=== PATIENT | female | born 1985 | race Two or more races ===

== ENCOUNTER 2018-03-31 18:12 | Emergency (ER) | payer OTHER ==
[~2018-03-31] VITALS: Ht 157.5 cm; Wt 47.6 kg
[2018-03-31 18:55] LABS: BILIRUBIN,URINE NEGATIVE (NEG); CLARITY,URINE CLEAR; COLOR,URINE YELLOW; NITRITE,URINE NEGATIVE (NEG); PH,URINE 5.5; PROTEIN,URINE NEGATIVE (NEG-TRACE); UROBILINOGEN,URINE 0.2 mg/dL (0.2 mg/dL)
[2018-03-31 19:11] LABS: BACTERIA,URINE FEW /HPF (0-FEW); RBC,URINE >40 /HPF (0-2)
[2018-03-31 19:12] LABS: SQUAMOUS EPITHELIAL CELL,UR FEW /LPF
[2018-03-31 19:15] LABS: BASO % 0 % (0-3); EOS # 0.1 x10^3/uL (0.0-0.7); EOS % 1 % (0-3); HEMATOCRIT 37.8 % (36.0-47.0); HEMOGLOBIN 12.7 g/dL (12.0-15.5); LYMPH # 1.9 x10^3/uL (1.0-4.8); LYMPH % 21 % (24-48); MEAN CORPUSCULAR HEMOGLOBIN 28 pg (25-35); MEAN CORPUSCULAR HGB CONC 34 g/dL (31-37); MEAN CORPUSCULAR VOLUME 84 fL (79-100); MONO # 0.5 x10^3/uL (0.0-1.1); MONO % 6 % (0-9); NEUT # 6.5 x10^3uL (1.8-7.7); NEUT % 72 % (31-73); PLATELET COUNT 238 x10^3/uL (140-400); RED BLOOD COUNT 4.48 x10^6/uL (3.50-5.40); RED CELL DISTRIBUTION WIDTH 15.4 % (11.5-14.5)
--- NOTE | 2018-03-31 19:52 | PHYS DOC ---
Past Medical History Past Medical History: No Pertinent History Past Surgical History: No Surgical History Alcohol Use: None Drug Use: None Adult General Chief Complaint Chief Complaint: VAGINAL BLEEDING HPI HPI Patient is a 32 year old G3, P3 female who is status post vaginal delivery 11 days who presents with increased vaginal bleeding since delivery with passage of worse eyes blood clots in the past 24 hours. Patient also reports dysuria, suprapubic pain and cramping. No dizziness, lightheadedness. No chest pain shortness of breath, nausea vomiting or sweats. Patient delivered at [facility] without complication has not been evaluated by her OB since discharge from hospital. No other symptoms or complaints. Translation services provided by professional phone unix systems administrator. Review of Systems Review of Systems Review symptoms as per history of present illness. All other review symptoms are negative. All other systems were reviewed and found to be within normal limits, except as documented in this note. Current Medications Current Medications Current Medications Medications (Trade) Dose Ordered Sig/Paige Start Time Stop Time Status Last Admin Dose Admin Ceftriaxone Sodium 50 ml @ 100 mls/hr 1X ONCE 03/31/18 20:15 03/31/18 20:44 Allergies Allergies Allergies Coded Allergies Type Severity Reaction Last Updated Verified No Known Drug Allergies 03/31/18 No Physical Exam Physical Exam Constitutional: Well developed, well nourished, no acute distress, non-toxic appearance. [] HENT: Normocephalic, atraumatic, bilateral external ears normal, oropharynx moist, no oral exudates, nose normal. [] Eyes: PERRLA, EOMI, conjunctiva normal, no discharge. [] Neck: Normal range of motion, no tenderness. [] Cardiovascular:Heart rate regular rhythm. [] Lungs & Thorax: Bilateral breath sounds clear to auscultation [] Abdomen: Bowel sounds normal, soft, no tenderness,. [] : External genitalia, dried blood present over perennial area, vaginal wall, no lesions, cervix intact with mucopurulent drainage with scant blood present, no active bleeding. [] Back: No tenderness, no CVA tenderness. [] Extremities: No tenderness, no cyanosis, no clubbing, ROM intact, no edema. [] Neurologic: Alert and oriented, normal motor function, normal sensory function, no focal deficits noted. [] Psychologic: Affect normal, judgement normal, mood normal. [] Current Patient Data Vital Signs Vital Signs Date Time Temp Pulse Resp B/P (MAP) Pulse Ox O2 Delivery O2 Flow Rate FiO2 03/31/18 18:30 98.5 63 18 116/56 (76) 97 Room Air 98.5 Lab Values Laboratory Tests Test 03/31/18 18:22 03/31/18 19:00 Urine Collection Type Unknown Urine Color Yellow Urine Clarity Clear Urine pH 5.5 Urine Specific [place] 1.025 Urine Protein Negative mg/dL (NEG-TRACE) Urine Glucose (UA) 100 mg/dL (NEG) Urine Ketones (Stick) Negative mg/dL (NEG) Urine Blood Large (NEG) Urine Nitrite Negative (NEG) Urine Bilirubin Negative (NEG) Urine Urobilinogen Dipstick 0.2 mg/dL (0.2 mg/dL) Urine Leukocyte Esterase Moderate (NEG) Urine RBC >40 /HPF (0-2) Urine WBC 5-10 /HPF (0-4) Urine Squamous Epithelial Cells Few /LPF Urine Bacteria Few /HPF (0-FEW) Urine Mucus Mod /LPF White Blood Count 9.0 x10^3/uL (4.0-11.0) Red Blood Count 4.48 x10^6/uL (3.50-5.40) Hemoglobin 12.7 g/dL (12.0-15.5) Hematocrit 37.8 % (36.0-47.0) Mean Corpuscular Volume 84 fL (79-100) Mean Corpuscular Hemoglobin 28 pg (25-35) Mean Corpuscular Hemoglobin Concent 34 g/dL (31-37) Red Cell Distribution Width 15.4 % (11.5-14.5) H Platelet Count 238 x10^3/uL (140-400) Neutrophils (%) (Auto) 72 % (31-73) Lymphocytes (%) (Auto) 21 % (24-48) L Monocytes (%) (Auto) 6 % (0-9) Eosinophils (%) (Auto) 1 % (0-3) Basophils (%) (Auto) 0 % (0-3) Neutrophils # (Auto) 6.5 x10^3uL (1.8-7.7) Lymphocytes # (Auto) 1.9 x10^3/uL (1.0-4.8) Monocytes # (Auto) 0.5 x10^3/uL (0.0-1.1) Eosinophils # (Auto) 0.1 x10^3/uL (0.0-0.7) Basophils # (Auto) 0.0 x10^3/uL (0.0-0.2) Glucose (Fingerstick) 109 mg/dL (70-99) H Laboratory Tests 03/31/18 19:00 EKG EKG [] Radiology/Procedures Radiology/Procedures [Pelvic ultrasound: Thickened endometrium and complex fluid present in endometrial cavity concerning for for possible endometritis per radiology report.] Course & Med Decision Making Course & Med Decision Making Pertinent Labs and Imaging studies reviewed. (See chart for details) [No significant active bleeding on evaluation. Enlarged uterus with concern for possible endometritis. Culture obtained. Rocephin given we'll place patient on doxycycline with instructions to follow-up with her [employer] in 2-3 days for reevaluation. Return precautions reviewed.] Dragon Disclaimer Dragon Disclaimer This electronic medical record was generated, in whole or in part, using a voice recognition dictation system. Departure Departure Impression: Primary Impression: Endometritis Disposition: HOME, SELF-CARE Condition: GOOD Referrals: UNKNOWN PCP NAME (PCP) Scripts Doxycycline Hyclate (DOXYCYCLINE HYCLATE) 100 Mg Capsule 1 CAP PO BID, #20 CAP Prov: RADHA JIM DO 03/31/18 RADHA JIM DO Mar 31, 2018 19:52
--- NOTE | 2018-03-31 20:02 | RAD ---
Pelvic ultrasound dated 03/31/2018. No comparison available. CLINICAL INDICATION: Post vaginal delivery. Heavy bleeding. FINDINGS: Transabdominal pelvic ultrasound was performed. Uterus measures 10.3 x 9.7 x 7.5 cm. No focal uterine mass. The endometrium is thickened and heterogeneous with some complex fluid in the endometrial canal, measuring up to 2.6 cm. Mild increased vascularity surrounding endometrium. Right ovary measures 2.9 x 1.9 x 1.7 cm. Left ovary is not clearly identified. There is normal color Doppler flow to the right ovary. Small amount of free pelvic fluid. IMPRESSION: 1. Thickened endometrial complex with complex fluid in the endometrial canal, nonspecific. This could be related to recent delivery. Endometritis as another consideration. 2. Small amount of free pelvic fluid, nonspecific. Electronically signed by: Alfredo Flores MD (03/31/2018 7:59 PM) [facility]
[2018-03-31] MEDS ORDERED: DOXY100C2 PO (20:15)
[2018-03-31 20:29] VITALS: BP 111/67
== END 2018-03-31 21:00 | disposition home or self-care (01) ==
LOC: ER 18:12
DX: O86.12 Endometritis following delivery (principal)
CPT/HCPCS: 36415; 76856; 81001; 82962; 85025; 96365; 99285; J0690; 87070